=== PATIENT | female | born 1955 ===

== ENCOUNTER 2019-02-14 06:45 | Day surgery (SDC) | payer OTHER ==
[~2019-02-14] VITALS: Ht 160 cm; Wt 75.5 kg
--- NOTE | 2019-02-14 07:25 | NUR ---
Ambulatory in Day Surgery History, Chart, Medications and Allergies reviewed before start of procedure.Lungs clear T/O to Auscultation. Patient States Post-Procedure ride home has been arranged.
[2019-02-14] MEDS ORDERED: SERT100 PO (07:48)
[2019-02-14] MEDS ORDERED: SYNTHROID175 MCG PO (07:48)
[2019-02-14] MEDS ORDERED: PROBIOTIC1 EAC1 PO (07:49)
[2019-02-14] MEDS ORDERED: VITAMIN D5000 UNIT PO (07:49)
[2019-02-14] MEDS ORDERED: DIGESTIVE ENZY220 MG PO (07:49)
--- NOTE | 2019-02-14 09:06 | NUR ---
02/14/19 0906 Jimenez Hogan History, Chart, Medications and Allergies reviewed before start of procedure.MONITOR INTACT WITH CONTINUOUS PULSE OXIMETRY AND INTERMITTENT BP.3-LEAD EKG REVIEWED WITH PHYSICIAN PRIOR TO START OF PROCEDURE.O2 VIA N/C INTACT THROUGHOUT SEDATION/PROCEDURE. Patient confirms NPO status and agrees with scheduled surgery.PATIENT DETERMINED TO BE ASA APPROPRIATE FOR PROPOFOL SEDATION PRIOR TO START OF PROCEDURE BY DR. CERVANTES.
--- NOTE | 2019-02-14 09:47 | NUR ---
PT RETURNED TO RECOVERY AT APPROX 0940. LETHARGIC INITIALLY BUT WOKE EASILY OVER FIRST FIVE MINUTES IN RECOVERY. NOW AT BEDSIDE. PT CONVERSING WITH STAFF. NO C/O PAIN OR DISCOMFORT.
--- NOTE | 2019-02-14 09:53 | NUR ---
MD AT BEDSIDE REVIEWING RESULTS WITH PATIENT
--- NOTE | 2019-02-14 10:04 | NUR ---
PT SITTING AT EDGE OF BED - NO C/O DIZZINESS. DOES C/O HEADACHE BUT STATES IT FEELS "LIKE A SINUS" KIND OF HEADACHE. TOLERATING PO FLUIDS WITHOUT DIFFICULTY. REVIEWED DC INSTRUCTIONS WITH PATIENT AND , BOTH OF WHOM VERBALIZE UNDERSTANDING OF ALL. QUESTIONS ANSWERED, PRINT OUT GIVEN.
== END 2019-02-14 10:04 | disposition home or self-care (01) ==
LOC: ORSCMMR 06:45 → ORSCSDS 08:45 → ORD 08:45 → ORSCSDS 09:00 → ORSCMMR 10:04 → ORSCSDS 03-14 08:00
DX: R13.10 Dysphagia, unspecified (principal); K22.8 Other specified diseases of esophagus; K20.9 Esophagitis, unspecified; K22.0 Achalasia of cardia
CPT/HCPCS: 88305; 88312; C1726; J2704; J7120